=== PATIENT | female | born 1960 | race Caucasian/White ===

== ENCOUNTER 2022-03-31 10:13 | Emergency (ER) | payer OTHER ==
[~2022-03-31 10:13] MED LIST: BACTRIM DS TAB1 EACH PO
[2022-03-31 10:40] LABS: BASOPHIL 0.6 % (0-2); HCT 45.5 % (37.0-47.0); HGB 15.3 g/dl (12.5-16.0); LYMPHOCYTE 43.2 % (15-48); MCH 28.4 pg (25.0-31.0); MCHC 33.6 g/dL (32.0-36.0); MCV 84.6 fL (78.0-100.0); MONOCYTE 8.9 % (0-12); MPV 10.7 fL (6.0-9.5); NRBC 0; PLT 230 K/uL (150-400); RBC 5.38 M/uL (4.20-5.40); RDW 13.1 % (11.5-14.0); WBC 6.4 K/uL (4.0-10.5)
[2022-03-31 10:44] LABS: INR 0.99 (0.9-1.2); PROTHROMBIN TIME 12.5 SECONDS (11.8-13.4); PTT 25.2 SECONDS (24.4-34.7)
[2022-03-31 11:01] LABS: BILIRUBIN - TOTAL 0.5 mg/dL (0.2-1.0); BUN/CREAT RATIO (CALC) 20.6 RATIO; CREATININE 0.68 mg/dL (0.51-0.95); GLOBULIN (CALCULATION) 3.7 g/dL; POTASSIUM 3.9 mmol/L (3.5-5.1); TOTAL PROTEIN 7.7 g/dL (6.4-8.2)
== END 2022-03-31 15:37 | disposition other institution (70) ==
LOC: FER 10:13
PROVIDERS: Emergency Medicine
DX: I21.9 Acute myocardial infarction, unspecified (principal); I10 Essential (primary) hypertension; Z20.822 Contact with and (suspected) exposure to COVID-19; Z79.899 Other long term (current) drug therapy
CPT/HCPCS: 36415; 71045; 80053; 82553; 84484; 85025; 85610; 85730; 93005; J1644; J2270; J2405; J7040; U0002